=== PATIENT | male | born 1965 | race Caucasian/White ===

== ENCOUNTER 2020-12-31 22:07 | Emergency (ER) | payer SELFPAY ==
[~2020-12-31] VITALS: Ht 170.2 cm; Wt 96.0 kg
[2020-12-31] MEDS ORDERED: SODIUM CHLORIDE 0.9% 1,000ML IVBOLUS ONE (22:30)
--- NOTE | 2020-12-31 22:40 | NUR ---
PT REFUSING XRAY AT THIS TIME.
[2020-12-31 22:50] LABS: BASOPHILS % (AUTO) 1 % (0-1); EOSINOPHILS % (AUTO) 1 % (1-7); LYMPHOCYTES % (AUTO) 24 % (22-44); MEAN CORPUSCULAR HEMOGLOBIN 33.9 pg (27.5-34.5); MEAN CORPUSCULAR HGB CONC 35.2 g/dL (33.2-36.2); MEAN PLATELET VOLUME 6.9 fL (7.4-10.4); MONOCYTES % (AUTO) 6 % (2-9); NEUTROPHILS % (AUTO) 68 % (42-75); PLATELET COUNT 196 x10^3/uL (130-400); RED BLOOD COUNT 4.28 x10^6/uL (4.38-5.82); RED CELL DISTRIBUTION WIDTH 13.6 % (9.4-14.8)
[2020-12-31 22:51] LABS: MD NO
[2020-12-31 22:58] LABS: ALANINE AMINOTRANSFERASE 35 U/L (12-78); ALBUMIN 3.7 g/dL (3.4-5.0); ANION GAP 8 mmol/L (5-15); CALCIUM 8.2 mg/dL (8.5-10.1); CHLORIDE 109 mmol/L (98-107); CREATININE 1.04 mg/dL (0.7-1.3)
[2020-12-31 23:03] LABS: ALKALINE PHOSPHATASE 74 U/L (45-117); BILIRUBIN,TOTAL 0.2 mg/dL (0.2-1.0); TOTAL PROTEIN 7.1 g/dL (6.4-8.2); TROPONIN I < 0.015 ng/mL (0.000-0.045)
--- NOTE | 2020-12-31 23:18 | NUR ---
REPORT TO ANGELITA PEDRAZA.
--- NOTE | 2020-12-31 23:30 | NUR ---
REPORT FROM ИВАН PEDRAZA. PT IN ROOM RESTING WITH FRIND AT BEDSIDE. PT TO BE DISCHARGED WHEN SOBER
[2020-12-31 23:45] VITALS: BP 129/73
--- NOTE | 2021-01-01 00:33 | NUR ---
THIS RN WENT TO CHECK ON PT. PT ELOPED PRIOR RO RECEIVING DISCHARGE PAPERS. PIV FOUND IN TRASH.
== END 2021-01-01 00:37 | disposition left against medical advice (07) ==
LOC: ED 22:36
DX: R55 Syncope and collapse (principal); F10.129 Alcohol abuse with intoxication, unspecified; Z87.891 Personal history of nicotine dependence; Y90.0 Blood alcohol level of less than 20 mg/100 ml
CPT/HCPCS: 36415; 80053; 80320; 83880; 84484; 85025; 93005; 99284; G0480